=== PATIENT | female | born 1955 | race Caucasian/White ===

== ENCOUNTER 2024-01-18 22:01 | Inpatient (IN) | payer MEDICARE, OTHER ==
[~2024-01-18] VITALS: Ht 162.6 cm; Wt 68.0 kg
[2024-01-18 22:43] LABS: BASOPHILS % (AUTO) 0.3 % (0.0-2.0); EOSINOPHILS # (AUTO) 0.1 K/uL (0.0-0.7); EOSINOPHILS % (AUTO) 0.8 % (0.0-7.0); HEMATOCRIT 39.9 % (31.2-41.9); HEMOGLOBIN 13.3 g/dL (10.9-14.3); LYMPHOCYTES # (AUTO) 3.1 K/uL (0.8-4.8); LYMPHOCYTES % (AUTO) 46.8 % (20.5-51.5); MEAN CORPUSCULAR HEMOGLOBIN 28.2 uug (24.7-32.8); MEAN CORPUSCULAR HGB CONC 33 g/dL (32.3-35.6); MEAN CORPUSCULAR VOLUME 84.4 fL (75.5-95.3); MONOCYTES # (AUTO) 0.4 K/uL (0.1-1.30); MONOCYTES % (AUTO) 5.4 % (0.0-11.0); NEUTROPHILS # (AUTO) 3.1 K/uL (1.8-8.9); NEUTROPHILS % (AUTO) 46.7 % (38.5-71.5); PLATELET COUNT (AUTO) 292 K/uL (179-408); RED BLOOD CELL COUNT(AUTO) 4.72 MIL/uL (3.63-4.92); RED CELL DISTRIBUTION WIDTH 14.2 % (12.3-17.7); WHITE BLOOD COUNT (AUTO) 6.6 K/uL (3.8-11.8)
[2024-01-18] MEDS ORDERED: AMLO10TA59 PO (22:49)
[2024-01-18] MEDS ORDERED: HYDR-3980 PO (22:49)
[2024-01-18] MEDS ORDERED: DULO-77 PO (22:49)
[2024-01-18] MEDS ORDERED: CALC500T52 PO (22:49)
[2024-01-18] MEDS ORDERED: METR250T36 PO (22:49)
[2024-01-18] MEDS ORDERED: TELM40TA2 PO (22:49)
[2024-01-18] MEDS ORDERED: PRED2.5T PO (22:49)
[2024-01-18] MEDS ORDERED: METO50TA16 PO (22:49)
[2024-01-18] MEDS ORDERED: [UNRECOGNIZED DRUG - OTHER] PO (22:49)
[2024-01-18] MEDS ORDERED: ROSU10TA29 PO (22:49)
[2024-01-18] MEDS ORDERED: CHOL500062 PO (22:49)
[2024-01-18 22:55] LABS: CALCIUM 9.1 mg/dL (8.5-10.1); CARBON DIOXIDE 23 mmol/L (21-32); CHLORIDE 106 mmol/L (98-107); CREATININE 0.6 mg/dL (0.6-1.3); GLUCOSE 147 mg/dL (74-106); POTASSIUM 3.6 mmol/L (3.5-5.1); SODIUM SERUM 143 mmol/L (136-145); UREA NITROGEN, BLOOD 19 mg/dL (7-18)
[2024-01-18 22:59] LABS: DIFFERENTIAL COMMENT 1
[2024-01-18 23:08] LABS: ALANINE AMINOTRANSFERASE 20 U/L (14-59); ALBUMIN 3.7 g/dL (3.4-5.0); ALKALINE PHOSPHATASE 152 U/L (50-136); ASPARTATE AMINOTRANSFERASE 7 U/L (15-37); BILIRUBIN,DIRECT 0.1 mg/dL (0.0-0.2); BILIRUBIN,TOTAL 0.2 mg/dL (0.2-1.0); NT-PRO BNP 288 pg/mL (0-125); TOTAL PROTEIN, SERUM 7.8 g/dL (6.4-8.2)
[2024-01-18] MEDS ORDERED: NITROGLYCERIN 0.4 MG/TAB BOTTLE SL ONE (23:09)
[2024-01-18] MEDS ORDERED: ACETAMINOPHEN ES 500 MG TABLET ONE (23:10)
[2024-01-18] MEDS: ACETAMINOPHEN ES 500 MG TABLET PO ONE (23:11)
[2024-01-18] MEDS: NITROGLYCERIN 0.4 MG/TAB BOTTLE SL ONE (23:11)
[2024-01-18] MEDS ORDERED: LORAZEPAM 1 MG TABLET ONE (23:20)
[2024-01-18] MEDS: LORAZEPAM 0.5 MG TABLET PO ONE (23:21)
[2024-01-18] MEDS: KETOROLAC TROMETHAMINE 15 MG INJ IVP ONE (23:21)
[2024-01-18] MEDS ORDERED: DONE5TAB34 PO (23:22)
[2024-01-19] MEDS ORDERED: MORPHINE SULFATE 2 MG/1 ML DISP.SYRIN ONE (00:57)
[2024-01-19] MEDS: MORPHINE SULFATE 2 MG/1 ML DISP.SYRIN IV ONE (01:00)
[2024-01-19] MEDS ORDERED: IV NORMAL SALINE 250 ML IV ONE (01:06)
[2024-01-19] MEDS ORDERED: SWABABLE VALVE TRANSFER SET EA MC ONE (01:06)
[2024-01-19] MEDS ORDERED: IOHEXOL 350 100 ML INFUS..BTL ONE (01:06)
[2024-01-19] MEDS ORDERED: ONDANSETRON 4 MG/2 ML VIAL IV PRN (06:00)
[2024-01-19] MEDS ORDERED: ACETAMINOPHEN 325 MG TABLET PO PRN (06:00)
[2024-01-19] MEDS ORDERED: MORPHINE SULFATE 2 MG/1 ML DISP.SYRIN IV PRN (06:00)
[2024-01-19 08:00] VITALS: BP 151/60; TEMP 97.2; O2SAT 98
[2024-01-19] MEDS: ENOXAPARIN SODIUM 40 MG/0.4 ML DISP.SYRIN SQ SCH (09:00)
== END 2024-01-19 16:00 | disposition left against medical advice (07) | DRG 311 ==
LOC: ER 22:10 → TELE3 01-19 09:31
PROVIDERS: ADMIT Nurse Practitioner Acute Care; ATTEND Nurse Practitioner Acute Care
DX: I24.9 Acute ischemic heart disease, unspecified (principal); F03.94 Unspecified dementia, unspecified severity, with anxiety; F03.93 Unspecified dementia, unspecified severity, with mood disturbance; I25.10 Atherosclerotic heart disease of native coronary artery without angina pectoris; I25.2 Old myocardial infarction; I10 Essential (primary) hypertension; E78.5 Hyperlipidemia, unspecified; E03.9 Hypothyroidism, unspecified; I49.3 Ventricular premature depolarization; K80.20 Calculus of gallbladder without cholecystitis without obstruction
CPT/HCPCS: 36415; 71045; 71260; 83690; 84484; 85025; 85730; 93005; 93307; A4606; A4663; A9150; G0378; J1650; J1885; J2270; Q9967